=== PATIENT | female | born 1965 | race African-American/Black ===

== ENCOUNTER 2017-07-07 11:17 | Emergency (ER) | payer SELFPAY ==
[~2017-07-07] VITALS: Ht 175.3 cm; Wt 73.0 kg
[~2017-07-07 11:17] MED LIST: AMLO10TA4 PO; ATEN50TA PO; ATOR20TA PO
[2017-07-07 11:26] VITALS: BP 172/111
[2017-07-07 12:20] LABS: CLARITY URINE CLOUDY (CLEAR); COLOR URINE DARK YELLOW (YELLOW); GLUCOSE URINE NEGATIVE (NEGATIVE); KETONES URINE NEGATIVE (NEGATIVE); LEUKOCYTE ESTERASE URINE 1+ (NEGATIVE); NITRITE URINE POSITIVE (NEGATIVE); OCCULT BLOOD URINE 1+ (NEGATIVE); PROTEIN URINE 3+ (NEGATIVE); SPECIFIC GRAVITY URINE 1.032 (1.005-1.030)
[2017-07-09 04:16] LABS: CHLAMYDIA TRACHOMATIS NAA Negative (Negative); NEISSERIA GONORRHOEAE NAA Positive (Negative)
== END 2017-07-07 15:00 | disposition home or self-care (01) ==
LOC: ER 14:11
DX: N76.0 Acute vaginitis (principal); I10 Essential (primary) hypertension; F17.210 Nicotine dependence, cigarettes, uncomplicated; Z98.51 Tubal ligation status
CPT/HCPCS: 81001; 81025; 87210; 87491; 87591; 99284

== ENCOUNTER 2017-07-15 11:25 | Emergency (ER) | payer SELFPAY ==
[~2017-07-15] VITALS: Ht 175.3 cm; Wt 72.5 kg
[2017-07-15] MEDS ORDERED: AZITHROMYCIN 500 MG TABLET PO ONE (13:00)
[2017-07-15] MEDS ORDERED: CEFTRIAXONE SODIUM 250 MG/VIAL IM ONE (13:00)
[2017-07-15 13:14] VITALS: BP 150/64
== END 2017-07-15 13:15 | disposition home or self-care (01) ==
LOC: ER 11:29
DX: A54.9 Gonococcal infection, unspecified (principal); I10 Essential (primary) hypertension; F17.200 Nicotine dependence, unspecified, uncomplicated; R10.30 Lower abdominal pain, unspecified
CPT/HCPCS: 96372; 99283; J0696; Z7610

== ENCOUNTER 2017-09-30 20:38 | Emergency (ER) | payer MEDICAID ==
[~2017-09-30] VITALS: Ht 175.3 cm; Wt 70.0 kg
[2017-09-30 21:10] VITALS: BP 166/113
[2017-09-30] MEDS ORDERED: AMLODIPINE 5MG TABLET PO ONE (21:30)
[2017-09-30] MEDS: AMLODIPINE 10MG TABLET PO ONE (22:15)
== END 2017-09-30 22:30 | disposition home or self-care (01) ==
LOC: ER 21:41
DX: I10 Essential (primary) hypertension (principal); F17.200 Nicotine dependence, unspecified, uncomplicated; Z98.51 Tubal ligation status; Z86.73 Personal history of transient ischemic attack (TIA), and cerebral infarction without residual deficits
CPT/HCPCS: 99283

== ENCOUNTER 2018-09-04 00:51 | Emergency (ER) | payer MEDICAID ==
[~2018-09-04] VITALS: Ht 172.7 cm; Wt 81.8 kg
[2018-09-04 02:14] LABS: BASOPHILS % 1.9 % (0.0-2.0); EOSINOPHILS % 0.4 % (0.0-5.0); HEMATOCRIT. 39.3 % (36.0-48.0); HEMOGLOBIN. 13.8 g/dL (12.0-16.0); LYMPHOCYTES % 18.8 % (20.0-50.0); MEAN CORPUSCULAR HEMOGLOBIN 39.8 pg (28.0-32.0); MEAN CORPUSCULAR VOLUME 113.8 fL (81.0-99.0); MEAN PLATELET VOLUME 9.7 fl (7.4-10.4); MONOCYTES % 12.7 % (2.0-8.0); NEUTROPHILS % 66.2 % (40.0-76.0); PLATELET 166 x1000/uL (130-400); RED BLOOD CELL COUNT 3.46 mill/uL (4.2-5.4); RED CELL DISTRIBUTION WIDTH 14.7 % (11.6-14.6)
[2018-09-04 02:18] LABS: CHLORIDE 97 mEq/L (98-107)
[2018-09-04 02:21] LABS: INR 1.1; PARTIAL THROMBOPLASTIN TIME 28.1 sec (23.4-31.0); PROTHROMBIN TIME 11.4 sec (9.1-11.1)
[2018-09-04] MEDS ORDERED: ONDANSETRON HCL 4MG/2ML INJ IV ONE (04:45)
[2018-09-04 05:31] VITALS: BP 177/112
[2018-09-04 10:25] LABS: PLATELET ESTIMATE NORMAL
== END 2018-09-04 05:35 | disposition home or self-care (01) ==
LOC: ER 02:07 → CANBEDREQ 07:18
DX: R07.89 Other chest pain (principal); F41.9 Anxiety disorder, unspecified; I10 Essential (primary) hypertension; Z86.73 Personal history of transient ischemic attack (TIA), and cerebral infarction without residual deficits; Z98.51 Tubal ligation status
CPT/HCPCS: 36415; 71045; 80053; 83880; 84484; 85025; 85610; 85730; 93005; 96374; 99284; J2405

== ENCOUNTER 2019-07-04 21:21 | Emergency (ER) | payer MEDICAID ==
[~2019-07-04] VITALS: Ht 175.3 cm; Wt 69.0 kg
[2019-07-05] MEDS ORDERED: METOCLOPRAMIDE HCL 10MG/2ML VIAL IV ONE (00:15)
[2019-07-05] MEDS ORDERED: DIPHENHYDRAMINE 50MG/ML VIAL IV ONE (00:15)
[2019-07-05 00:26] LABS: BASOPHILS % 1.7 % (0.0-2.0); EOSINOPHILS % 1.7 % (0.0-5.0); HEMATOCRIT. 41.1 % (36.0-48.0); HEMOGLOBIN. 14.1 g/dL (12.0-16.0); LYMPHOCYTES % 36.3 % (20.0-50.0); MEAN CORPUSCULAR HEMOGLOBIN 37.6 pg (28.0-32.0); MEAN CORPUSCULAR VOLUME 109.3 fL (81.0-99.0); MONOCYTES % 10.4 % (2.0-8.0); NEUTROPHILS % 49.9 % (40.0-76.0); PLATELET 207 x1000/uL (130-400); RED BLOOD CELL COUNT 3.76 mill/uL (4.2-5.4)
[2019-07-05 00:31] LABS: CHLORIDE 105 mEq/L (98-107)
[2019-07-05 03:40] VITALS: BP 139/94
== END 2019-07-05 04:02 | disposition home or self-care (01) ==
LOC: ER 21:21
DX: S06.0X9A Concussion with loss of consciousness of unspecified duration, initial encounter (principal); R51 Headache; I67.1 Cerebral aneurysm, nonruptured; I10 Essential (primary) hypertension; F17.210 Nicotine dependence, cigarettes, uncomplicated; Z79.899 Other long term (current) drug therapy; Z98.51 Tubal ligation status; Z82.49 Family history of ischemic heart disease and other diseases of the circulatory system; Z80.9 Family history of malignant neoplasm, unspecified; X58.XXXA Exposure to other specified factors, initial encounter; Y93.89 Activity, other specified; Y92.89 Other specified places as the place of occurrence of the external cause; Y99.8 Other external cause status
CPT/HCPCS: 36415; 70450; 80053; 85025; 96374; 96375; 99284; 99406; J1200; J2765; Z7610

== ENCOUNTER 2019-09-04 16:04 | Emergency (ER) | payer MEDICAID, BC ==
[~2019-09-04] VITALS: Ht 175.3 cm; Wt 68.0 kg
[2019-09-04 16:09] VITALS: BP 139/94
== END 2019-09-04 19:07 | disposition home or self-care (01) ==
LOC: ER 16:04
DX: H66.92 Otitis media, unspecified, left ear (principal); R05 Cough; H92.02 Otalgia, left ear; I10 Essential (primary) hypertension; Z98.51 Tubal ligation status; Z79.899 Other long term (current) drug therapy; F17.200 Nicotine dependence, unspecified, uncomplicated; Z82.49 Family history of ischemic heart disease and other diseases of the circulatory system; Z80.9 Family history of malignant neoplasm, unspecified
CPT/HCPCS: 99283

== ENCOUNTER 2022-08-11 18:42 | Emergency (ER) | payer BC, MEDICAID ==
[~2022-08-11] VITALS: Ht 177.8 cm; Wt 78.0 kg
[2022-08-11 18:51] VITALS: BP 127/94
[2022-08-11] MEDS ORDERED: CEFTRIAXONE SODIUM 500 MG/VIAL IM ONE (21:15)
[2022-08-11 22:28] LABS: CLARITY URINE TURBID (CLEAR); COLOR URINE YELLOW (YELLOW); KETONES URINE NEGATIVE (NEGATIVE); LEUKOCYTE ESTERASE URINE 3+ (NEGATIVE); NITRITE URINE POSITIVE (NEGATIVE); OCCULT BLOOD URINE TRACE (NEGATIVE); PH URINE 6.5 (4.5-8.0); PROTEIN URINE TRACE (NEGATIVE); SPECIFIC GRAVITY URINE 1.013 (1.005-1.030)
[2022-08-11] MEDS ORDERED: NITR-87 MT (22:52)
[2022-08-11] MEDS ORDERED: METR-167 MT (22:52)
[2022-08-14 07:08] LABS: NEISSERIA GONORRHOEAE NAA Negative (Negative)
== END 2022-08-11 23:06 | disposition home or self-care (01) ==
LOC: ER 18:42
DX: Z20.2 Contact with and (suspected) exposure to infections with a predominantly sexual mode of transmission (principal); I10 Essential (primary) hypertension; E78.00 Pure hypercholesterolemia, unspecified; Z86.73 Personal history of transient ischemic attack (TIA), and cerebral infarction without residual deficits; Z98.51 Tubal ligation status
CPT/HCPCS: 81003; 87077; 87086; 87186; 87210; 87491; 87591; 96372; 99283; J0696

== ENCOUNTER 2023-09-05 12:59 | Emergency (ER) | payer MEDICAID ==
[~2023-09-05] VITALS: Ht 175.3 cm; Wt 56.7 kg
[~2023-09-05 12:59] MED LIST changes: +METR-167 MT; +NITR-87 MT
[2023-09-05 13:14] VITALS: O2SAT 98
[2023-09-05 15:54] LABS: BASOPHILS % 1.1 % (0.0-2.0); EOSINOPHILS % 1.1 % (0.0-5.0); HEMATOCRIT. 39.5 % (36.0-48.0); HEMOGLOBIN. 12.6 g/dL (12.0-16.0); LYMPHOCYTES % 19.2 % (20.0-50.0); MEAN CORPUSCULAR HEMOGLOBIN 37.4 pg (28.0-32.0); MEAN CORPUSCULAR VOLUME 116.8 fL (81.0-99.0); MEAN PLATELET VOLUME 8.7 fl (7.4-10.4); MONOCYTES % 8.9 % (2.0-8.0); NEUTROPHILS % 69.7 % (40.0-76.0); PLATELET 205 x1000/uL (130-400); RED BLOOD CELL COUNT 3.38 mill/uL (4.2-5.4); RED CELL DISTRIBUTION WIDTH 16.6 % (11.6-14.6); WHITE BLOOD COUNT 8.1 x1000/uL (4.5-11.0)
[2023-09-05 15:57] LABS: DIFFERENTIAL COMMENT 1
[2023-09-05 15:58] LABS: ADD RBC MORPHOLOGY YES
[2023-09-05 16:11] LABS: ALANINE AMINOTRANSFERASE 15 IU/L (10-49); ALBUMIN 3.9 g/dL (3.2-4.8); ASPARTATE AMINOTRANSFERASE 24 IU/L (<34); BILIRUBIN TOTAL 0.5 mg/dL (0.1-1.0); CARBON DIOXIDE 23 mEq/L (21-32); CHLORIDE 110 mEq/L (98-107); CREATININE 0.6 mg/dL (0.6-1.0); GLUCOSE 86 mg/dL (70-105); POTASSIUM 4.2 mEq/L (3.5-5.1); PROTEIN TOTAL 7.1 g/dL (6.0-8.3); SODIUM 141 mEq/L (136-145); UREA NITROGEN BLOOD 9 mg/dL (9-23)
[2023-09-05 17:18] LABS: PLATELET ESTIMATE NORMAL
[2023-09-05 17:19] LABS: ANISOCYTOSIS 2+
[2023-09-05] MEDS ORDERED: CLIN-194 MT (17:24)
[2023-09-05] MEDS ORDERED: AMOX1TAB16 MT (17:24)
[2023-09-05 17:53] VITALS: BP 118/72; PULSE 106; RESP 16; TEMP 98.2
== END 2023-09-05 17:54 | disposition home or self-care (01) ==
LOC: ER 14:04
DX: N61.1 Abscess of the breast and nipple (principal); E78.00 Pure hypercholesterolemia, unspecified; I10 Essential (primary) hypertension; Z98.51 Tubal ligation status
CPT/HCPCS: 36415; 80053; 83605; 85025; 99283